=== PATIENT | male | born 2005 | race Caucasian/White ===

== ENCOUNTER 2025-03-01 08:20 | Emergency (ER) | payer MEDICAID, OTHER ==
[~2025-03-01] VITALS: Ht 177.8 cm; Wt 86.0 kg
[2025-03-01 08:24] VITALS: O2SAT 98
[2025-03-01] MEDS: ACETAMINOPHEN 325MG TABLET PO ONE (09:08)
[2025-03-01 10:53] VITALS: BP 120/82; PULSE 85; RESP 15; TEMP 36.6; O2SAT 98
== END 2025-03-01 10:54 | disposition home or self-care (01) ==
LOC: ER 08:20
DX: S00.93XA Contusion of unspecified part of head, initial encounter (principal); S20.219A Contusion of unspecified front wall of thorax, initial encounter; R51.9 Headache, unspecified; V43.52XA Car driver injured in collision with other type car in traffic accident, initial encounter; Y92.410 Unspecified street and highway as the place of occurrence of the external cause; Y93.89 Activity, other specified; Y99.8 Other external cause status
CPT/HCPCS: 71045; 99284